=== PATIENT | male | born 1975 | race Two or more races ===

== ENCOUNTER 2024-03-08 22:48 | Emergency (ER) | payer MEDICAID, OTHER ==
[~2024-03-08] VITALS: Ht 188 cm; Wt 104.3 kg
[2024-03-08 23:21] VITALS: BP 178/92; TEMP 98.4; O2SAT 98
== END 2024-03-08 23:23 | disposition left against medical advice (07) ==
LOC: ER 22:51
DX: R07.89 Other chest pain (principal)